=== PATIENT | female | born 1995 | race Two or more races ===

== ENCOUNTER 2022-04-24 18:55 | Emergency (ER) | payer MEDICAID ==
[~2022-04-24] VITALS: Ht 149.9 cm; Wt 69.9 kg
--- NOTE | 2022-04-24 19:20 | NUR ---
"Been having palpitations but today worse. On phentermine" PT A/OX4. TOLERATING R/A WELL WITH NO RESP DISTRESS. SAFETY MEASURES IN PLACE.
--- NOTE | 2022-04-24 19:30 | NUR ---
URINE SMAPLE OBTAINED AND SENT TO LAB
[2022-04-24 19:48] VITALS: BP 114/66
--- NOTE | 2022-04-24 19:48 | NUR ---
PT OK TO DISCHARGE PER DR OCAMPO. Patient discharged to home in stable condition. Written and verbal after care instructions given. Patient verbalizes understanding of instruction.Patient is awake and alert to self, day, and place. PT ambulatory with a steady gait
== END 2022-04-24 19:49 | disposition home or self-care (01) ==
LOC: EDUNIT# 18:55 → ER 19:02
DX: R00.2 Palpitations (principal)